=== PATIENT | female | born 1955 | race Caucasian/White ===

== ENCOUNTER → 2019-07-06 | Outpatient (CLI) | payer MEDICAID ==
[~2019-07-06] MED LIST: ALLE12TA31 PO; BREO1INH INH; FLON1SPR; MULT-90 PO; PRED50TA PO; PROAAER10 INH; SING10TA32 PO; SYNT88TA2 PO
--- NOTE | 2019-07-07 16:28 | RADONC ---
RADIATION ONCOLOGY CONSULTATION NOTE: DATE: 07/06/2019 This is a telemedicine visit. The patient was informed of the risks including security breech, technological failure, inability to perform a comprehensive physical exam which could delay or prevent an accurate diagnosis, and potential complications from treatment decisions rendered over a telemedicine platform. The patient understands and consented to the use of telehealth services phone only. CHART NUMBER: [id number] DIAGNOSIS: Right breast cancer. STAGE 0, TIS, N0 M0, poorly differentiated, grade 3, ER negative, KS negative, HER2/lisa negative. ECOG PERFORMANCE STATUS: 0 Ms. 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 HISTORY OF PRESENT ILLNESS: The patient was in the usual state of health and had been diligent with screening mammography. The mammogram done on 12/02/2017 showed no evidence of malignancy. By August 2018, however, she noted a black spot on her right nipple. She subsequently developed black nipple discharge. In September 2018 she developed some breast pain which continued to worsen. On 09/10/2018 she presented at Urgent Care with blood and pus coming out of her breast. A culture was done and she was found to have MRSA. This was treated and an ultrasound was done showing a 2.7 x 0.7 cm fluid collection underneath the right nipple consistent with a dilated duct. There was no ultrasonically detected mass within the duct. There was noted to be however. a 1.9 cm x 0.9 cm tubular fluid collection underneath the right nipple consistent with a fluid-filled dilated duct. She was placed on IV vancomycin as well as Septra DS and cephalexin. Bilateral mammography was done on 10/28/2018 as well as ultrasound and showed some scattered benign-appearing calcifications and no definitive evidence of malignancy, although there was some irregular asymmetry and increased density in the right outer breast near the palpable abnormality. On 12/01/2018, the patient underwent lumpectomy. Pathology revealed a high-grade papillary and micropapillary ductal carcinoma in situ noted to be in conjunction with associated calcifications measuring 4.0 mm. There was adjacent fibrous tissue. The tumor was estrogen receptor negative and progesterone receptor negative. On 12/15/2018 the patient underwent further surgery for her right retroareolar resection lumpectomy. Pathology revealed infiltrating atypical epithelial cells which were highly suspicious for invasive ductal carcinoma measuring 3 mm. The residual ductal carcinoma in situ was intermediate grade. It was estrogen receptor negative, progesterone receptor negative and HER2/lisa negative. The specimen was fragmented and therefore margins were unclear. On 02/09/2019, the patient underwent re-excision and sentinel lymph node sampling. In the subareolar margin region, there was no evidence of residual metastatic disease. In the right breast lumpectomy section, also no evidence of residual disease. Both areas showed fat necrosis and foreign body giant cell reaction. Further margins again showed fat necrosis, but no evidence of malignancy. A total of three sentinel lymph nodes were sampled and all were negative for metastatic disease. The patient was referred for postoperative radiation therapy somewhere in [place] but reported that was far from her house and she decided to come here to live near her daughter and be treated here. PAST MEDICAL HISTORY: The patient's past medical history is positive for acute kidney injury after vancomycin in 2018. She has a history of asthma, gastroesophageal reflux disease, MRSA as noted above. She also has had peripheral neuropathy following right neck surgery in 2004. She had a basal cell carcinoma removed. She has had a cholecystectomy as well as a hysterectomy. She had neck surgery on C5 and C6. ALLERGIES: The patient is allergic to NSAIDs. SOCIAL HISTORY: The patient does not smoke cigarettes nor abuse alcohol. FAMILY HISTORY: The patient's family history is positive for a mother with breast cancer. Sister with melanoma and a niece with melanoma. REVIEW OF SYSTEMS: The patient's review of systems is noncontributory. Denies nausea, vomiting, fevers, chills, night sweats, diplopia, headaches, anxiety or depression, anorexia, weight loss, visual disturbances, chest pain, urinary or bowel difficulties, bone pain, or neurological problems. PHYSICAL EXAMINATION: Physical examination was deferred at this point as per COVID-19 precautions. This is a telephone consultation. ASSESSMENT: I had a lengthy discussion with this patient. I do believe she is a candidate for external beam radiation therapy and I have so informed her. We are now however 5 months since surgery. I discussed with the patient in detail the potential benefits as well as possible acute and chronic sequelae of external beam radiation therapy. We discussed logistics of treatment planning, simulation and subsequent fractionated daily radiation treatments. I am scheduling the patient for the next available simulation slot and radiation treatments will begin subsequently. In addition, considering this patient's unusual history, I am setting her up with a consultation for medical oncology for their opinion. At this time, I only have documentation of ductal carcinoma in situ and therefore I do not believe she would be a candidate for systemic chemotherapy. There is a question on whether or not this is invasive and she appears to be are receptor triple negative. In summary, I am setting her up for a medical oncology consultation just to rule out any type of treatment through their office for the sake of thoroughness. In addition I am setting her up for simulation here. In light of the fact that it has now been over 5 months since her surgery without any postop treatment. I am ordering an MRI of the right breast to evaluate her at this time. Thank you for allowing us participate in the care of this pleasant woman. If I could be of any further assistance please, free contact me anytime. As always warm regards, Cc: Lukasz Flowers MD, [place] Guerita Benavides [place] cc: Milli Page MD
== END ==
LOC: M ONCR 09:07
PROVIDERS: ATTEND Radiology Radiation Oncology
DX: C50.911 Malignant neoplasm of unspecified site of right female breast (principal)

== ENCOUNTER → 2019-07-19 | Outpatient (CLI) | payer OTHER ==
[~2019-07-19] MED LIST changes: +PROHANCE 279.3MG/ML 15ML VIAL As Ordered ONE
--- NOTE | 2019-07-19 23:24 | REP ---
MRI BILATERAL BREAST WITH AND WITHOUT CONTRAST: HISTORY: Right breast lumpectomy retroareolar region with residual ductal carcinoma in situ and infiltrative atypical epithelial cells highly suspicious for invasive ductal carcinoma. There are no prior studies for comparison. TECHNIQUE: Multiple sequences obtained in the axial, coronal, and sagittal planes prior to and following the intravenous administration of 14 mL ProHance. Images are evaluated in [employer] software, including dynamic post IV gadolinium axial T1 fat-sat images, subtraction images, color overlay images, CAD images, and MIP reconstruction images. Right breast is smaller than the left with retraction of the right nipple posteriorly. In the right retroareolar region, there are multiple metallic clips causing signal dropout, obscuring this region. There is mild fibroglandular tissue scattered bilaterally. There is minimal background parenchymal enhancement. There is probably a small amount of fluid at the lumpectomy site. No significant cystic change is seen bilaterally. I see no axillary adenopathy. There is no suspicious enhancing mass or morphologic abnormality bilaterally. No definite abnormal enhancement is seen in the region of the right lumpectomy site. IMPRESSION: BIRADS category 2, benign. The patient has had a prior right lumpectomy, and reportedly the pathology results were residual ductal carcinoma in situ and infiltrative atypical epithelial cells highly suspicious for invasive ductal carcinoma. Postsurgical changes are noted on the right side in the retroareolar region, as discussed in detail above. There is no suspicious enhancing mass on the MRI and no suspicious enhancing morphologic abnormality particularly in the region of the right lumpectomy. Electronically Signed by Cristian Kern MD 07/20/2019 09:19 A
== END ==
LOC: M RAD 12:35
PROVIDERS: ATTEND Radiology Radiation Oncology
DX: C50.111 Malignant neoplasm of central portion of right female breast (principal)
CPT/HCPCS: A9576; C8908

== ENCOUNTER 2019-08-06 10:27 | Outpatient (RCR) | payer OTHER ==
--- NOTE | 2019-07-26 07:36 | RADONC ---
RADIATION ONCOLOGY SIMULATION NOTE DATE: 07/21/2019 CHART #: [id number] Ms. Bain was taken to the CT scan for CT simulation of her right breast field. CT was accomplished without difficulty or discomfort. Radiation treatment planning is underway and radiation treatments will begin subsequently. An immobilization device was created and will be used throughout the course of treatment. It was created without difficulty or discomfort. I was physically present throughout the course of CT simulation.
[~2019-08-06 10:27] MED LIST changes: -PROHANCE 279.3MG/ML 15ML VIAL As Ordered ONE
== END 2019-08-08 ==
LOC: M ONCR 10:27
PROVIDERS: ATTEND Radiology Radiation Oncology
DX: C50.111 Malignant neoplasm of central portion of right female breast (principal)

== ENCOUNTER 2019-08-25 10:26 | Outpatient (RCR) | payer OTHER ==
--- NOTE | 2019-08-10 16:56 | RADONC ---
RADIATION ONCOLOGY PROGRESS NOTE DATE: 08/03/2019 CHART NUMBER: [id number] PROGRESS NOTE: Ms. Bain is presently at a dose of 1068 cGy to her right breast and is tolerating treatments quite well at this point with no complaints related to radiation therapy. She is having no breast or bone pain. REVIEW OF SYSTEMS: The patient's review of systems is noncontributory. Denies nausea, vomiting, fevers, chills, night sweats, diplopia, headaches, anxiety or depression, anorexia, weight loss, visual disturbances, chest pain, urinary or bowel difficulties, bone pain, or neurological problems. PHYSICAL EXAMINATION: The patient's skin is in good condition with no evidence of moist or dry desquamation. The remainder of her physical exam remains unchanged. Ms. Bain is tolerating treatments quite well and radiation will continue as scheduled.
--- NOTE | 2019-08-15 08:22 | RADONC ---
RADIATION ONCOLOGY PROGRESS NOTE DATE: 08/09/2019 CHART NUMBER: [id number] PROGRESS NOTE: Ms. Bain is presently at a dose of 2136 cGy to her right breast and is tolerating treatments quite well at this point with no complaints related to her radiation therapy. She is having no breast or bone pain. REVIEW OF SYSTEMS: The patient's review of systems is noncontributory. Denies nausea, vomiting, fevers, chills, night sweats, diplopia, headaches, anxiety or depression, anorexia, weight loss, visual disturbances, chest pain, urinary or bowel difficulties, bone pain, or neurological problems. PHYSICAL EXAMINATION: The patient's skin is in good condition with no evidence of moist or dry desquamation. The remainder of physical exam remains unchanged. Ms. Bain is tolerating treatments quite well and radiation will continue as scheduled.
--- NOTE | 2019-08-17 08:55 | RADONC ---
RADIATION ONCOLOGY SIMULATION NOTE DATE: 08/11/2019 CHART #: [id number] Ms. Bain was taken to the linear accelerator today for clinical setup of her right breast electron beam boost field. Setup was accomplished without difficulty or discomfort. Radiation treatment planning is underway and radiation treatments will begin subsequently. An immobilization device was created without difficulty or discomfort. It will be used throughout the course of treatment. I was physically present throughout the course of clinical setup simulation.
--- NOTE | 2019-08-19 23:34 | RADONC ---
RADIATION ONCOLOGY PROGRESS NOTE DATE: 08/16/2019 CHART NUMBER: [id number] Ms. Bain is presently at a dose of 3471 cGy to her right breast and is tolerating treatments quite well at this point with no significant difficulties related to her radiation therapy other than some itchiness of the skin. The patient's review of systems is positive for itchiness of skin but is otherwise noncontributory. She denies nausea, vomiting, fevers, chills, night sweats, diplopia, headaches, anxiety or depression, anorexia, weight loss, visual disturbances, chest pain, urinary or bowel difficulties, bone pain, or neurological problems. PHYSICAL EXAMINATION: The patient's skin shows some erythema present but no evidence of moist or dry desquamation. The remainder of her physical exam remains unchanged. Ms. Bain is tolerating treatments quite well and radiation will continue as scheduled.
--- NOTE | 2019-08-25 10:21 | RADONC ---
RADIATION ONCOLOGY PROGRESS NOTE: DATE: 08/23/2019 CHART NUMBER: [id number] Ms. Bain is presently at a dose of 4545 cGy to her right breast primary site and is tolerating treatments quite well at this point with no significant complaints related to her radiation therapy. She is having no significant pain. REVIEW OF SYSTEMS: The patient's review of systems is noncontributory. She denies nausea, vomiting, fevers, chills, night sweats, diplopia, headaches, anxiety or depression, anorexia, weight loss, visual disturbances, chest pain, urinary or bowel difficulties, bone pain, or neurological problems. PHYSICAL EXAMINATION: The patient's skin is in good condition with no evidence of moist or dry desquamation. The remainder of her physical exam remains unchanged. Ms. Bain is tolerating treatments quite well and radiation will continue as scheduled.
--- NOTE | 2019-08-27 13:59 | RADONC ---
RADIATION ONCOLOGY TREATMENT SUMMARY DATE: 08/25/2019 CHART NUMBER: [id number] DIAGNOSIS: Right breast cancer. STAGE: 0, [id number], poorly differentiated, grade 3, ER negative, WI negative, HER2/lisa negative. ECOG PERFORMANCE STATUS: 0 TREATMENT SUMMARY: Ms. 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 We treated the patient to her right breast for a total dose of 4005 cGy delivered in 15 fractions of 260 cGy each over 21 elapsed days from 07/28/2019 through 08/18/2019. The patient's right breast was treated on a linear accelerator utilizing a 6 MV photon beam via 3-D conformal technique with medial and lateral tangential herrera. Following completion of 4005 cGy to the entire right breast the primary site was boosted for an additional 900 cGy delivered in 5 fractions of 180 cGy each over six elapsed days from 08/19/2019 through 08/25/2019. The primary site boost was treated on a linear accelerator utilizing a 9 MeV electron beam prescribed to the 90% isodose line via non phos technique. This brought the primary site to a total dose of 4905 cGy delivered in 20 fractions over 27 elapsed days from 07/28/2019 through 08/25/2019. Ms. Bain tolerated her treatments quite well and was able complete therapy as prescribed without interruption. I have scheduled the patient to see me again in 1 month for further followup. She will also continue to be followed by her other physicians as well. Copy to Lukasz Flowers MD in [place]. cc: MD Milli Logan MD
== END 2019-09-07 ==
LOC: M ONCR 10:26
PROVIDERS: ATTEND Radiology Radiation Oncology
DX: C50.111 Malignant neoplasm of central portion of right female breast (principal)

== ENCOUNTER → 2019-09-29 | Outpatient (CLI) | payer OTHER ==
[~2019-09-29] MED LIST changes: +ACET1TAB55 PO; +ADV250INH INH; +TAMO20TA8 PO
== END ==
LOC: M ONCR 10:25
PROVIDERS: ATTEND Radiology Radiation Oncology
DX: C50.111 Malignant neoplasm of central portion of right female breast (principal)

== ENCOUNTER → 2019-12-29 | Outpatient (CLI) | payer OTHER ==
--- NOTE | 2019-12-29 11:57 | RADONC ---
Radiation Oncology Hx/FUP Radiation Oncology Hx/FUP Date of Service: Dec 29, 2019 Pt Identifier Elif Bain is a 64 year old female seen for a followup visit today at the department of radiation oncology for a history of right breast DCIS ER/MA/HER2- Grade 3 s/p lumpectomy 12/01/18 and re-excision 12/15/18, the latter specimen had inconclusive evidence of an IDC. She completed adjuvant RT 40 Gy in 15 fractions WBI followed by 9 Gy in 6 fractions to the tumor bed on 08/25/19. Diagnosis/Treatment History Oncologic History As above Interval History Feels well. Currently not on endocrine or other systemic therapy. Sees medical oncology soon. Has mammographic follow up scheduled for later this year. She has no concerns post RT, noted the right breast is slightly asymmetric with the left breast sitting higher. She is curious if this is normal, not concerned about cosmesis. Current Therapy Surveillance Stage pTisN0(sn)M0 ER/MA/HER2- Grade 3 Social History: Non-smoker Non-drinker Allergies / Meds Allergies: Coded Allergies: NSAIDS (Non-Steroidal Anti-Inflamma (Verified Allergy, Severe, anaphylaxis, 07/08/19) soy (Verified Allergy, Severe, anaphylaxis, 07/08/19) Home Meds Active Scripts Fluticasone/Vilanterol (Breo Ellipta 100-25 Mcg INH) 1 Each Blst.w.dev, 1 PUFF INH DAILY for 30 Days, #1 INHALER 1 puff daily Prov:BRENDA SMALL MD 07/08/19 Reported Medications Multivitamin (Multivitamin) 1 Each Tablet, 1 EACH PO DAILY, TAB 07/08/19 Prednisone (Prednisone) 50 Mg Tablet, 1 TAB PO DAILY for 5 Days, #5 TAB 07/08/19 Fluticasone Propionate (Flonase Allergy Relief) 9.9 Ml [place].susp, 50 MCG NA DAILY, SPR 07/06/19 Fexofenadine/Pseudoephedrine (Jade-D 12 Hour Tablet) 1 Each Tab.er.12h, 1 TAB PO DAILY 07/06/19 Albuterol Sulfate (Proair Hfa) 8.5 Gm Hfa.aer.ad, 2 PUFF INH Q4-6HP PRN for wheezing for 21 Days, #1 INHALER 07/06/19 Levothyroxine Sodium (Synthroid) 88 Mcg Tablet, 88 MCG PO DAILY, TAB 07/06/19 Montelukast Sodium (Singulair) 10 Mg Tablet, 10 MG PO DAILY, TAB 07/06/19 Review of Systems Review of Systems Constitutional: Denies: ROS Unabtainable, Chills, Fever, Malaise, Night Sweats, Weakness, Fatigue, Weight Loss, Lethargy, Normal appetite, Other symptoms Eyes: Denies: Pain, Vision change, Conjunctivae inflammation, Eyelid inflammation, Redness, Other HEENT: Denies: Head Aches, Ear Pain, Dysphagia, Sinus Congestion, Post Nasal Drip, Sore Throat, Epistaxis, Other Symptoms Skin: Denies: Rash, Lesions, Jaundice, Bruising, Other Breast: Denies: New Breast Lumps / Masses, Nipple Retraction, Nipple Discharge, Breast Skin Changes, Breast Pain or Tenderness, Other Breast Complaints Pulmonary: Denies: Dyspnea, Cough, Pleuritic Chest Pain, Other Symptoms Cardiovascular: Denies: Chest Pain, Palpitations, Orthopnea, Paroxysmal Noc. Dyspnea, Edema, Lt Headedness, Other Symptoms Gastrointestinal: Denies: Nausea, Vomiting, Abdominal Pain, Diarrhea, Constipation, Melena, Hematochezia, Other Symptoms Genitourinary: Denies: Dysuria, Frequency, Incontinence, Hematuria, Retention, Other Symptoms Hematologic: Denies: Bruising, Bleeding Excessively, Petecchia, Purpura, Enlarged Lymph Nodes, Other Hematologic Endocrine: Denies: Polydipsia, Polyphagia, Polyuria, Heat Intolerance, Cold Intolerance, Other Endocrine Sx Musculoskeletal: Denies: Neck pain, Shoulder pain, Arm pain, Back pain, Hand pain, Leg pain, Foot pain, Joint pain, Muscle pain, Spasms, Gout, Joint sweling, Muscle stiffness, Midthoracic pain, Other Neurological: Denies: Weakness, Numbness, Incoordination, Change in Speech, Confusion, Seizures, Other Symptoms Psych: Denies: Mood Normal, Anxiety, Depression, Memory Issues, Thoughts of Self Harm, Anger, Thoughts of harming Other, Other Psych Physical Examination Vital Signs Wt 162 lbs T 98 P 76 RR 16 BP 152/83 O2 98% Pain 0 Fatigue 0 General Exam: Positive: Alert, Cooperative, No Acute Distress Eye Exam: Positive: PERRLA, EOMI ENT EXAM: Positive: Atraumatic, Pharynx Normal Neck Exam: Positive: Supple; Negative: Lymphadenopathy Chest Exam: Positive: Clear to auscultation, Normal air movement Heart Exam: Positive: Rate Normal, Regular Rhythm Breast Exam: Negative: Symmetric Bilaterally (Right breast ptosis > left. ), Lumps or Masses, Nipple Retraction, Nipple Discharge, Skin Changes, Other Breast Findings (Well healed right periareolar incision. Palpable seroma on right, no masses in breast or axillae BL) Abdomen Exam: Positive: Soft; Negative: Tenderness Extremity Exam: Negative: Edema Skin Exam: Positive: Nl turgor and temperature; Negative: Rash Neuro Exam: Positive: Normal Gait, Cranial Nerves 3-12 NL Psych Exam: Positive: Mental status NL, Mood NL, Anxiety Diagnostic and Laboratory Diagnostic Review Radiologic images, relevant labs and pathology reports were personally reviewed and discussed with Ms. Bain. Assessment and Plan Impression Assessment Ms. Bain is a 64 year old female with a history of right breast DCIS ER/MA/HER2- Grade 3 s/p lumpectomy 12/01/18 and re-excision 12/15/18, the latter specimen had inconclusive evidence of an IDC. She completed adjuvant RT 40 Gy in 15 fractions WBI followed by 9 Gy in 6 fractions to the tumor bed on 08/25/19. She is doing well, there is CHAPIN on exam today. The mild asymmetry of her breasts appears to be natural and not related to post-RT fibrosis as there are no palpable abnormalities to suggest it. She has appropriate medical oncology and mammographic follow up scheduled. She has no cosmetic or post radiation concerns. I will see her again in 1 year and continue annual follow up. Performance Status ECOG 0 Plan Follow up in 1 year Ms. Bain was encouraged to call with questions or concerns in the interim period. JAMIL FRANCIS MD Dec 29, 2019 11:57
== END ==
LOC: M ONCR 10:27
PROVIDERS: ATTEND General Practice
DX: C50.111 Malignant neoplasm of central portion of right female breast (principal)

== ENCOUNTER 2020-01-14 23:36 | Inpatient (IN) | payer OTHER ==
[~2020-01-14] VITALS: Ht 162.6 cm; Wt 73.8 kg
[~2020-01-14 23:36] MED LIST changes: -ACET1TAB55 PO
[2020-01-15 01:35] VITALS: BP 170/90
[2020-01-15] MEDS ORDERED: NS 1,000 ML IV SCH (02:15)
[2020-01-15] MEDS ORDERED: MAALOX 30 ML SUSP *UDC PO PRN (02:15)
[2020-01-15] MEDS ORDERED: ACETAMINOPHEN TAB 650MG DOSE (2X325MG) PO PRN (02:15)
[2020-01-15] MEDS ORDERED: MOM 30ML SUSPENSION UDC PO PRN (02:15)
[2020-01-15] MEDS ORDERED: MORPHINE 2 MG/ML 1ML VIAL (J2270) IV PRN (02:15)
[2020-01-15] MEDS ORDERED: PERCOCET 5MG/325MG TAB PO PRN (02:15)
[2020-01-15 03:44] LABS: HEMATOCRIT 40.8 % (36.0-47.0); MEAN CORPUSCULAR HGB CONC 31.9 g/dl (32.0-36.5); MEAN CORPUSCULAR VOLUME 87.9 fl (80.0-96.0); PLATELET COUNT, AUTOMATED 200 10^3/uL (150-450); RED BLOOD COUNT 4.64 10^6/uL (4.00-5.40); WHITE BLOOD COUNT 8.5 10^3/uL (4.0-10.0)
[2020-01-15 03:53] VITALS: BP 170/90
[2020-01-15 04:00] VITALS: BP 134/66
--- NOTE | 2020-01-15 04:12 | HPEPDOC ---
[facility] Medical History & Physical Date of Admission Jan 15, 2020 Date of Service: Jan 15, 2020 Attending Physician: JACQUELYN LEYVA MD History and Physical CHIEF COMPLAINT: Flank pain HISTORY OF PRESENT ILLNESS: Patient is a 64-year-old female who presented to [facility] emergency department with right-sided flank pain. Patient says that she is having some mild back and right flank pain for the past 2 days. All of a sudden earlier in the day on 01/14/2020 patient had increasing flank pain with hematuria. Patient reported the emergency department at [facility]. In the hospital emergency department, a CT of the abdomen and pelvis showed a 5 mm obstructing stone in the right uteropelvic junction. The decision was made to transfer the patient to [facility]. Patient says that she is still having some flank pain however, she is not an unbearable pain at this time. Patient reports that she still does have some hematuria but does not have any other complaints. PAST MEDICAL HISTORY: 1. History of kidney stones. 2. Hypothyroidism. 3. Breast cancer. 4. Asthma PAST SURGICAL HISTORY: 1. Multiple breast surgeries. 2. Cervical spine surgery. 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 Patient never used tobacco, rare rarely drinks alcohol and does not use illicit drugs. FAMILY HISTORY: Patient's half sister has Parkinson's disease. Patient's mother has breast cancer ALLERGIES: Please see below. REVIEW OF SYSTEMS: General: Patient denies fevers HEENT: Patient denies headaches Cardiovascular: Patient denies chest pain Respiratory: Patient denies shortness of breath, cough GI: Patient reported some nausea and vomiting but denies abdominal pain and diarrhea : Patient reports blood in her urine but denies any pain with urination. Extremities: Patient denies swelling or pain in extremities Neurological: Patient denies numbness or tingling in legs Skin: Patient denies any new rashes or lesions. Hematologic: Patient denies any easy bruising. Lymphatic: Patient denies any lumps lumps or bumps in neck, axilla, or groin HOME MEDICATIONS: Please see below. PHYSICAL EXAMINATION: VITAL SIGNS: See below General: Alert and oriented female patient who was laying on the hospital bed and I walked into the room. Patient does not appear to be any acute distress. HEENT: Normocephalic, atraumatic, moist mucous membranes. Neck: No lymphadenopathy or thyromegaly Cardiac: Regular rate and rhythm, no murmurs, normal S1, normal S2 Pulm: Clear to auscultation bilaterally. No wheezes, rhonchi, rales Abd: Mild abdominal pain in the right lower quadrant. No rebound tenderness. No distention. Normoactive bowel sounds Ext: No edema bilateral lower extremities Skin: No evidence of rash. LABORATORY DATA: See below. IMAGING: A CT of the abdomen and pelvis was performed at [facility] and was reported to show moderate right hydronephrosis related to a 5 mm proximal right ureteral calculus MICROBIOLOGY: Please see below. ASSESSMENT: And is a 64-year-old female presented to the emergency room at [facility] for increased flank pain with hematuria and was diagnosed with nephrolithiasis. . PLAN: 1. Right ureteropelvic junction nephrolithiasis. Patient has been placed on IV fluids and has been given pain control. Urology has been consult did and will see the patient in the morning. Patient is currently nothing by mouth as the patient may be going to surgery in the morning. We will continue to monitor the patient. 2. Hypothyroidism. We will continue patient's medications. 3. History of breast cancer. We'll continue the patient's home tamoxifen. Patient has completed radiation therapy. 4. DVT prophylaxis: Teds and sequentials patient may be on to the operating room in the morning. 5. CODE STATUS: At this time is full code however, the patient did mention she is thinking about getting a DO NOT RESUSCITATE order. I did give her a MOLST form to review and told the patient if she wishes to review it to let the nurse know and we will go through with her. Vital Signs Vital Signs Date Time Temp Pulse Resp B/P (MAP) Pulse Ox O2 Delivery O2 Flow Rate FiO2 01/15/20 01:35 97.2 92 19 170/90 (116) 96 Room Air Laboratory Data Labs 24H Laboratory Tests 2 01/15/20 03:38: Nucleated Red Blood Cells % (auto) 0.0 CBC/BMP Laboratory Tests 01/15/20 03:38 Home Medications Scheduled Fluticasone Propionate (Flonase Allergy Relief) 9.9 Ml [place].susp, 50 MCG NA DAILY Levothyroxine Sodium (Synthroid) 88 Mcg Tablet, 88 MCG PO QAM Montelukast Sodium (Singulair) 10 Mg Tablet, 10 MG PO DAILY Multivitamin (Multivitamin) 1 Each Tablet, 1 EACH PO DAILY Salmeterol/Fluticasone (Advair 250-50 Diskus) 1 Each Blst.w.dev, 1 PUFF INH BID Tamoxifen Citrate (Tamoxifen Citrate) 20 Mg Tablet, 20 MG PO DAILY Scheduled PRN Albuterol Sulfate (Proair Hfa) 8.5 Gm Hfa.aer.ad, 2 PUFF INH Q4-6HP PRN for wheezing Fexofenadine/Pseudoephedrine (Jade-D 12 Hour Tablet) 1 Each Tab.er.12h, 1 TAB PO DAILY PRN for CONGESTION Allergies Coded Allergies: NSAIDS (Non-Steroidal Anti-Inflamma (Verified Allergy, Severe, anaphylaxis, 07/08/19) soy (Verified Allergy, Severe, anaphylaxis, 07/08/19) A-FIB/CHADSVASC A-FIB History Current/History of A-Fib/PAF?: No GME ATTESTATION GME ATTESTATION My faculty preceptor for this patient encounter was physically present during the encounter and was fully available. All aspects of the patient interview, examination, medical decision making process, and medical care plan development were reviewed and approved by the faculty preceptor. The faculty preceptor is aware and concurs with the plan as stated in the body of this note and will attest to such by his/her cosignature. KANNAN MITTAL DO Jan 15, 2020 04:12
[2020-01-15] MEDS ORDERED: ALBUTEROL 90 MCG/ACT 8GM HFA INHALER INH PRN (04:15)
[2020-01-15 04:18] LABS: BLOOD UREA NITROGEN 15 MG/DL (7-18); CALCIUM LEVEL 8.6 MG/DL (8.8-10.2); CARBON DIOXIDE LEVEL 29 MEQ/L (21-32); CHLORIDE LEVEL 109 MEQ/L (98-107); CREATININE FOR GFR 0.98 MG/DL (0.55-1.30); GLOMERULAR FILTRATION RATE > 60.0 (>45); GLUCOSE, FASTING 112 MG/DL (70-100); MAGNESIUM LEVEL 2.3 MG/DL (1.8-2.4); POTASSIUM SERUM 3.8 MEQ/L (3.5-5.1); SODIUM LEVEL 142 MEQ/L (136-145)
[2020-01-15] MEDS ORDERED: LEVOTHYROXINE 88MCG TABLET (0.088 MG) PO SCH (06:00)
[2020-01-15] MEDS ORDERED: ADVAIR HFA 115/21MCG INHALER INH SCH (08:00)
[2020-01-15 08:33] VITALS: BP 146/74
[2020-01-15] MEDS ORDERED: FLUTICASONE PROP 0.05% NASAL SPRAY 16 GM (FLONASE) SCH (09:00)
[2020-01-15] MEDS ORDERED: MONTELUKAST 10 MG TAB PO SCH (09:00)
[2020-01-15] MEDS ORDERED: TAMOXIFEN CITRATE 10 MG TAB PO SCH (09:00)
[2020-01-15 12:07] VITALS: BP 145/72
--- NOTE | 2020-01-15 12:37 | REP ---
INDICATION: Righr ureteral calculus. Overlying the renal COMPARISON: None. TECHNIQUE: AP supine abdomen FINDINGS: The gas pattern is nonspecific. There is sclerotic bone line overlying the inferior aspect of the right iliac bone above the acetabulum. Multiple pelvic phleboliths are seen bilaterally. There are multiple calcifications noted over the right renal fossa. The larger is 7.1 mm a smaller 4.6. I cannot confidently identify a right ureteral stone on this study but I have placed an aero about a subtle density lateral to the L3 transverse process on the right. Stool and gas overlie the expected proximal course of the ureter limiting the evaluation. No left renal fossa stone. No left ureteral calculus. Levorotatory curve of the lumbar spine and lower lumbar facet and degenerative disc changes noted Right upper quadrant surgical clips from prior cholecystectomy. IMPRESSION: : 1. There are least 2 stones overlying the right renal fossa the larger 7 mm. I do not see definite stone overlying the expected course of the right ureter but there is 1 questionable area that I have placed an arrow on just lateral to the L3 transverse process. This could be stool content in all likelihood. 2. Multiple pelvic phleboliths. No definite pelvic ureteral stone seen. No left renal fossa calcification. <Electronically signed by Lior Ramos > 01/15/20 [id number]
--- NOTE | 2020-01-15 13:11 | SMCUROLCON ---
Urology Consultation General Date of Consultation 01/15/20 Reason For Consultation This patient is seen for Obstruction Of Upj Due To Stone. History of Present Illness The patient is a 64-year-old female with a past medical history for kidney stones. She states that for about 2 weeks now she has been noticing some vague left back pain. This reached a peak last night where it became very severe and she pr esented to the emergency room and [place] for evaluation. A CT scan there showed a 5 mm proximal right ureteral calculus. Because of her level of pain she was transferred to [facility]. She states that on the ride down to [facility] the pain began to ease and disappeared completely about 3:00 this morning. She has not passed a stone that she is aware of. She does have a past history of stones dating back years ago when she was . She has not had any other stones since then and no stones passed spontaneously. She did have some gross hematuria despite before and while at [facility] but the urine has now cleared. Past Medical History Medical History Asthma Breast cancer Previous history of renal calculi Hypothyroidism Previous cervical spine fracture Surgical Hstory Hysterectomy Mastectomy Cholecystectomy Social History * Smoker: non-smoker Alcohol: rarely Drugs: denies Medications Current Medications Current Medications Medications (Trade) Dose Ordered Sig/Moe Route PRN Reason Start Time Stop Time Status Last Admin Dose Admin Acetaminophen (Tylenol Tab) 650 mg Q4H PRN PO PAIN OR FEVER 01/15/20 02:15 Al Hydrox/Mg Hydrox/Simethicone (Mylanta) 30 ml DAILY PRN PO DYSPEPSIA 01/15/20 02:15 Albuterol Sulfate (Proventil, Ventolin Hfa) 2 puff Q4HP PRN INH wheezing 01/15/20 04:15 Fluticasone Propionate (Flonase 0.05% Nasal [place]) 1 spray DAILY NA 01/15/20 09:00 Home Med (Med Rec Complete!) ASDIRECTED XX 01/15/20 03:30 01/15/20 03:27 DC Levothyroxine Sodium (Synthroid) 88 mcg DAILY@0600 PO 01/15/20 06:00 01/15/20 05:29 Magnesium Hydroxide (Milk Of Magnesia) 30 ml DAILY PRN PO CONSTIPATION 01/15/20 02:15 Montelukast Sodium (Singulair) 10 mg DAILY PO 01/15/20 09:00 01/15/20 09:11 Morphine Sulfate (Morphine Sulfate Inj) 2 mg Q2H PRN IV SEVERE PAIN (PS 8-10) 01/15/20 02:15 Oxycodone/ Acetaminophen (Percocet 5mg/ 325mg Tablet) 1 tab Q4HP PRN PO MODERATE PAIN (PS 5-7) 01/15/20 02:15 Salmeterol Xinafoate/ Fluticasone (Advair Hfa 115/ 21) 2 puff RBID INH 01/15/20 08:00 01/15/20 07:35 Sodium Chloride 1,000 ml @ 120 mls/hr Q8H20M IV 01/15/20 02:15 01/15/20 03:41 Tamoxifen Citrate (Nolvadex) 20 mg DAILY PO 01/15/20 09:00 01/15/20 09:11 Allergies Allergies: Coded Allergies: NSAIDS (Non-Steroidal Anti-Inflamma (Verified Allergy, Severe, anaphylaxis, 07/08/19) soy (Verified Allergy, Severe, anaphylaxis, 07/08/19) Review of Systems General: Reports: Normal Appetite; Denies: Fatigue, Malaise Constitutional: Denies: Fever, Chills, Sweats, Weakness, Malaise Eyes: Denies: Pain, Vision change ENT: Denies: Head Aches, Sore Throat, Epistaxis Skin: Denies: Rash, Lesions, Breakdown, Nail Changes Pulmonary: Denies: Dyspnea, Cough Cardiovascular: Denies Chest Pain, Denies Palpitations Gastrointestinal: Denies: Nausea, Vomiting, Abdominal Pain Genitourinary: Denies: Dysuria, Frequency, Incontinence, Hematuria Hematologic: Denies: Bruising, Bleeding Excessively Endocrine: Denies: Polydipsia, Polyphagia, Polyuria Musculoskeletal: Denies: Neck Pain, Back Pain Neurological: Denies: Weakness, Numbness, Incoordination, Change in Speech Psych: Reports: Mood Normal; Denies: Anxiety, Depression Physical Examination General Exam: Alert, No Acute Distress EYE EXAM: PERRLA, Conjunctiva & lids normal, EOMI; No: Sclera icteric ENT EXAM: Atraumatic, Mucous membr. moist/pink, Pharynx Normal Neck Exam: Supple; No: JVD, thyromegaly Chest Exam: Clear to auscultation, Normal air movement Heart Exam: Rate Normal, Regular Rhythm, Normal S1, Normal S2; No: Murmurs, Rubs Abdomen Exam: Normal Bowel Sounds, Soft; No: Tenderness, Hepatospenomegaly Female Exam Back is without CVA tenderness Skin Exam: Nl turgor and temperature; No: Rash, Breakdown Neuro Exam: Normal Gait, Normal Speech, Cranial Nerves 3-12 NL, Reflexes 2+ Psych Exam: Mental status NL, Mood NL, Oriented x 3 Vital Signs/I&O Vital Signs Date Time Temp Pulse Resp B/P (MAP) Pulse Ox O2 Delivery O2 Flow Rate FiO2 01/15/20 08:33 98.2 82 18 146/74 (98) 98 Room Air I&O- Last 24 Hours up to 6 AM 01/15/20 06:00 Intake Total 0 ml Output Total 950 ml Balance -950 ml Laboratory Data 24H Labs Laboratory Tests 2 01/15/20 03:38: Nucleated Red Blood Cells % (auto) 0.0, Anion Gap 4L, Glomerular Filtration Rate > 60.0, Calcium Level 8.6L, Magnesium Level 2.3 CBC/BMP Laboratory Tests 01/15/20 03:38 Assessment History of 5 mm right proximal ureteral calculus. Plan Patient will have a KUB to determine the location of the stone. At this point the patient is quite comfortable. I discussed the treatment options including watchful waiting with hopefully spontaneous stone passage, ESWL, ureteroscopic laser lithotripsy, stent insertion with definitive treatment at a later date. At this point, the patient wants to try to pass the stone on her own especially if her comfort level is tolerable as it is right now. A KUB has been ordered and depending upon the size and location of the stone a determination will be made at that time. NOTE: The KUB shows that the ureteral calculus has fallen back into the renal lower pole. She can therefore be discharged and followup as an outpatient for ESWL treatment. I have discussed this with the patient and she is in agreement. JUAN LUIS ESPINOZA MD Jan 15, 2020 11:47
[2020-01-15] MEDS ORDERED: ACET1TAB55 PO (13:23)
--- NOTE | 2020-01-15 17:48 | DS.PDOC ---
Discharge Summary General Date of Admission Jan 15, 2020 at 01:30 Date of Discharge 01/15/20 Discharge Summary PROCEDURES PERFORMED DURING STAY: [None]. ADMITTING DIAGNOSES: nephrolithiasis Hypothyroidism History of breast cancer DISCHARGE DIAGNOSES: nephrolithiasis Hypothyroidism History of breast cancer COMPLICATIONS/CHIEF COMPLAINT: Obstruction Of Upj Due To Stone. HISTORY OF PRESENT ILLNESS: The patient is a 64-year-old female with a past medical history for kidney stones. She states that for about 2 weeks now she has been noticing some vague left back pain. This reached a peak last night where it became very severe and she presented to the emergency room and [place] for evaluation. A CT scan there showed a 5 mm proximal right ureteral calculus. Because of her level of pain she was transferred to [facility]. She states that on the ride down to [facility] the pain began to ease and disappeared completely about 3:00 this morning. She has not passed a stone that she is aware of. She does have a past history of stones dating back years ago when she was . She has not had any other stones since then and no stones passed spontaneously. She did have some gross hematuria despite before and while at [facility] but the urine has now cleared. HOSPITAL COURSE: The KUB shows that the ureteral calculus has fallen back into the renal lower pole. She can therefore be discharged and followup as an outpatient for ESWL treatment. I have discussed this with the patient and she is in agreement. DISCHARGE MEDICATIONS: Please see below. ALLERGIES: Please see below. PHYSICAL EXAMINATION ON DISCHARGE: VITAL SIGNS: Please see below. General Exam: Alert, No Acute Distress EYE EXAM: PERRLA, Conjunctiva & lids normal, EOMI; No: Sclera icteric ENT EXAM: Atraumatic, Mucous membr. moist/pink, Pharynx Normal Neck Exam: Supple; No: JVD, thyromegaly Chest Exam: Clear to auscultation, Normal air movement Heart Exam: Rate Normal, Regular Rhythm, Normal S1, Normal S2; No: Murmurs, Rubs Abdomen Exam: Normal Bowel Sounds, Soft; No: Tenderness, Hepatospenomegaly Female Exam Back is without CVA tenderness Skin Exam: Nl turgor and temperature; LABORATORY DATA: Please see below. IMAGING: [facility] NAME: KAYE BLUM DATE OF : 1955 AGE: 64 SEX: F REPORT #: [id number] ROOM: [facility] TECHNOLOGIST: [place] [id number] DOCTOR: JUAN LUIS ESPINOZA MD Ordered for Date&Time: 01/15/20 1120 cc: [~ rep ct ivnm] Service Date&Time: 01/15/20 1146 This report is in Signed status. If this report is in a DRAFT status it has not yet been reviewed by the radiologist for accuracy. Thank you for having your radiology procedures performed at [facility] RADIOLOGY REPORT Date&Time printed: [~ rep prt dt last] [~ rep prt tm last] Page 2 of 2 [place] [address] RADIOLOGY REPORT This report is in Signed status. If this report is in a DRAFT status it has not yet been reviewed by the radiologist for accuracy. Thank you for having your radiology procedures performed at [facility] RADIOLOGY REPORT Date&Time printed: [~ rep prt dt last] [~ rep prt tm last] Page 1 of 1 TECHNIQUE: AP supine abdomen FINDINGS: The gas pattern is nonspecific. There is sclerotic bone line overlying the inferior aspect of the right iliac bone above the acetabulum. Multiple pelvic phleboliths are seen bilaterally. There are multiple calcifications noted over the right renal fossa. The larger is 7.1 mm a smaller 4.6. I cannot confidently identify a right ureteral stone on this study but I have placed an aero about a subtle density lateral to the L3 transverse process on the right. Stool and gas overlie the expected proximal course of the ureter limiting the evaluation. No left renal fossa stone. No left ureteral calculus. Levorotatory curve of the lumbar spine and lower lumbar facet and degenerative disc changes noted Right upper quadrant surgical clips from prior cholecystectomy. IMPRESSION: : 1. There are least 2 stones overlying the right renal fossa the larger 7 mm. I do not see definite stone overlying the expected course of the right ureter but there is 1 questionable area that I have placed an arrow on just lateral to the L3 transverse process. This could be stool content in all likelihood. 2. Multiple pelvic phleboliths. No definite pelvic ureteral stone seen. No left renal fossa calcification. <Electronically signed by Lior Ramos > 01/15/20 1234 DD: Lior Ramos MD 01/15/20 1228 DT: RADHA 01/15/20 1234 DS: RUSSELL 01/15/20 1228 01/15/20 1228 [~ rep ct labl] PROGNOSIS: Fair ACTIVITY: [As tolerated]. DIET: Regular DISPOSITION: 01 Home, Self-Care. DISCHARGE INSTRUCTIONS: Drink plenty of fluid ITEMS TO FOLLOWUP ON ON OUTPATIENT: Follow-up with urologist DISCHARGE CONDITION: [Stable]. TIME SPENT ON DISCHARGE: Greater than 20 minutes. Vital Signs/I&Os Vital Signs Date Time Temp Pulse Resp B/P (MAP) Pulse Ox O2 Delivery O2 Flow Rate FiO2 01/15/20 12:07 97.6 74 18 145/72 (96) 98 Room Air I&O- Last 24 Hours up to 6 AM 01/15/20 05:59 Intake Total 0 ml Output Total 950 ml Balance -950 ml Laboratory Data Labs 24H Laboratory Tests 2 01/15/20 03:38: Nucleated Red Blood Cells % (auto) 0.0, Anion Gap 4L, Glomerular Filtration Rate > 60.0, Calcium Level 8.6L, Magnesium Level 2.3 CBC/BMP Laboratory Tests 01/15/20 03:38 Discharge Medications Scheduled Fluticasone Propionate (Flonase Allergy Relief) 9.9 Ml [place].susp, 50 MCG NA DAILY, (Reported) Levothyroxine Sodium (Synthroid) 88 Mcg Tablet, 88 MCG PO QAM, (Reported) Montelukast Sodium (Singulair) 10 Mg Tablet, 10 MG PO DAILY, (Reported) Multivitamin (Multivitamin) 1 Each Tablet, 1 EACH PO DAILY, (Reported) Salmeterol/Fluticasone (Advair 250-50 Diskus) 1 Each Blst.w.dev, 1 PUFF INH BID, (Reported) Tamoxifen Citrate (Tamoxifen Citrate) 20 Mg Tablet, 20 MG PO DAILY Scheduled PRN Acetaminophen (Acetaminophen) 325 Mg Tablet, 650 MG PO Q4H PRN for PAIN OR FEVER Albuterol Sulfate (Proair Hfa) 8.5 Gm Hfa.aer.ad, 2 PUFF INH Q4-6HP PRN for wheezing, (Reported) Fexofenadine/Pseudoephedrine (Jade-D 12 Hour Tablet) 1 Each Tab.er.12h, 1 TAB PO DAILY PRN for CONGESTION, (Reported) Allergies Coded Allergies: NSAIDS (Non-Steroidal Anti-Inflamma (Verified Allergy, Severe, anaphylaxis, 07/08/19) soy (Verified Allergy, Severe, anaphylaxis, 07/08/19) ALEX GARRIDO DO Jan 15, 2020 17:48
[2020-01-16] MEDS ORDERED: FLUBLOK(EGG FREE)(QUAD)INFLUENZA VACC 0.5ML SYRINGE 18YRS & OLDER IM ONE (09:00)
== END 2020-01-15 14:53 | disposition home or self-care (01) | DRG 465 ==
LOC: M PCU 01-15 01:30
PROVIDERS: ADMIT Family Medicine; ATTEND Internal Medicine
DX: N20.1 Calculus of ureter (principal); E03.9 Hypothyroidism, unspecified; Z85.3 Personal history of malignant neoplasm of breast; Z79.899 Other long term (current) drug therapy; Z88.6 Allergy status to analgesic agent; J45.909 Unspecified asthma, uncomplicated; R31.9 Hematuria, unspecified

== ENCOUNTER → 2020-01-21 | Outpatient (REF) | payer OTHER ==
[~2020-01-21] MED LIST changes: +ACET1TAB55 PO; +NEURIVA
== END ==
LOC: M SMT 17:07
PROVIDERS: ATTEND Urology
DX: N20.2 Calculus of kidney with calculus of ureter (principal)

== ENCOUNTER → 2020-01-21 | Outpatient (CLI) | payer OTHER ==
--- NOTE | 2020-01-21 13:36 | REP ---
INDICATION: CALCULUS OF KIDNEY W/ CALCULUS OF URETER. COMPARISON: 01/15/2020. FINDINGS: KUB shows the intestinal gas pattern to be nonspecific. The organ silhouettes insofar as delineated are unremarkable. There is no evidence of free intraperitoneal air. The small bowel gas pattern seen on the prior examination has improved. 2 calcifications are again seen superimposed over the right nephric silhouette unchanged. There are bilateral pelvic phleboliths unchanged. IMPRESSION: Nonspecific. <Electronically signed by Peter Conteh > 01/21/20 1037
== END ==
LOC: M RAD 12:46
PROVIDERS: ATTEND Urology
DX: N20.2 Calculus of kidney with calculus of ureter (principal)

== ENCOUNTER → 2020-01-24 | Outpatient (CLI) | payer OTHER ==
[~2020-01-24] MED LIST changes: +FLOM0.4C39 PO; +OXYC1TAB23 PO
--- NOTE | 2020-01-24 23:40 | ECGEPIP ---
[facility] Test Date: 2020-01-24 Pat Name: KAYE BLUM Department: Room: - Gender: Female Recreation Establishment Manager: LAUREEN : 1955 Requested By: WILLIAM Tim Order Number: [id number] Reading MD: Tushar Vickers Measurements Intervals [place] Rate: 78 P: 59 MN: 191 QRS: -11 QRSD: 97 T: 23 QT: 377 QTc: 430 Interpretive Statements SINUS RHYTHM POSSIBLE LEFT ATRIAL ENLARGEMENT RSR' IN V1 OR V2, RIGHT VCD OR RVH NO PRIOR TRACING Electronically Signed on 01-24-2020 23:40:22 EST by Tushar Vickers
--- NOTE | 2020-01-25 02:40 | REP ---
INDICATION: ENCOUNTER FOR OTHER PREPROCEDURAL EXAM/EKG 1ST COMPARISON: None. TECHNIQUE: PA and lateral. FINDINGS: The mediastinum and cardiac silhouette are normal. Mild chronic changes at the right base are suggested and should be correlated with physical examination and auscultation to exclude acute atelectasis. No consolidation, effusion, or pneumothorax. Evidence for prior cervical fixation and right breast surgery. Skeletal structures are intact. IMPRESSION: No obvious acute cardiopulmonary process appreciated. As above. <Electronically signed by Eloy Johnson > 01/25/20 [id number]
== END ==
LOC: M EKG 09:02
PROVIDERS: ATTEND Urology
DX: Z01.818 Encounter for other preprocedural examination (principal); N20.0 Calculus of kidney

== ENCOUNTER → 2020-01-25 | Outpatient (CLI) | payer OTHER | LOC: M LABSMTC 09:49 | PROVIDERS: ATTEND Anesthesiology | DX: Z01.812 Encounter for preprocedural laboratory examination (principal); Z20.828 Contact with and (suspected) exposure to other viral communicable diseases ==

== ENCOUNTER 2020-01-27 06:47 | Day surgery (SDC) | payer OTHER ==
[~2020-01-27] VITALS: Ht 162.6 cm; Wt 73.5 kg
[~2020-01-27 06:47] MED LIST changes: -FLOM0.4C39 PO; +LIDOCAINE 1% MDV 20ML VIAL SQ PRN; +LR 1,000 ML IV ONE; -OXYC1TAB23 PO; +ceFAZolin SOD 2 GM in IV 1 EA IV ONE
--- NOTE | 2020-01-27 07:59 | REP ---
INDICATION: KIDNEY STONE COMPARISON: 01/21/2020 TECHNIQUE: Supine view of the abdomen and pelvis. FINDINGS: Evaluation for urinary tract calcifications is limited due to technique and overlying bowel gas pattern. However, the two previously noted calcifications overlying the right renal silhouette are again suggested and unchanged. Calcifications in the pelvis remain stable and likely represent phleboliths. No bowel obstruction. No organomegaly. Evidence for prior cholecystectomy. Skeletal structures stable. IMPRESSION: Limited evaluation for urinary tract calcifications. Suspected stable calcifications overlying the right renal silhouette up to 4 mm. <Electronically signed by Eloy Johnson > 01/27/20 [id number]
[2020-01-27] MEDS ORDERED: FLOM0.4C39 PO (08:58)
[2020-01-27] MEDS ORDERED: OXYC1TAB23 PO (08:58)
[2020-01-27] MEDS ORDERED: ONDANSETRON 4MG/2ML VIAL As Ordered ONE (09:10)
[2020-01-27] MEDS ORDERED: fentaNYL 100 MCG/2 ML INJECTION (J3010) As Ordered ONE (09:10)
[2020-01-27] MEDS ORDERED: GLYCOPYRROLATE INJ 0.2 MG/ML 2 ML VIAL As Ordered ONE (09:10)
[2020-01-27] MEDS ORDERED: MIDAZOLAM INJ 2MG/2ML VIAL (J2250 PER 1MG) As Ordered ONE (09:10)
[2020-01-27] MEDS ORDERED: LIDOCAINE 2% 100MG/5ML SDV (FOR ANES.) As Ordered ONE (09:10)
[2020-01-27] MEDS ORDERED: KETAMINE HCL 200 MG/20 ML VIAL As Ordered ONE (09:10)
[2020-01-27] MEDS ORDERED: propofoL 200 MG/20 ML VIAL As Ordered ONE (09:10)
--- NOTE | 2020-01-27 09:13 | ROOPDOC ---
[facility] Report Of Operation Report of Operation DATE OF PROCEDURE: 01/27/20 PREPROCEDURE DIAGNOSIS: Right kidney stones. POSTPROCEDURE DIAGNOSIS: Right kidney stones. PROCEDURE: Right extracorporeal shock wave lithotripsy. SURGEON: Dr. William Meza EMPLOYMENT LAW SPECIALIST: None. ANESTHESIA: Monitored anesthesia care (MAC). OPERATIVE INDICATIONS: This is a 64-year-old female who was found 2 right kidney stones measuring up to 5-6mm in size. she was brought to the operating room today for the above-listed procedure. DESCRIPTION OF PROCEDURE: The patient brought to the operating room, and MAC anesthesia was administered. Prophylactic antibiotics were infused. She was then placed in the supine position in preparation for a right-sided extracorporeal shock wave lithotripsy. Fluoroscopy was utilized to monitor stone position and fragmentation throughout the procedure. Shock waves were then delivered to the right-sided kidney stones ungated. There were no arrhythmias. The stones did appear to fragment well. After 2500 shocks, the procedure was concluded. The patient was then awakened from anesthesia and transported to the recovery room in stable condition. ESTIMATED BLOOD LOSS: 0 mL. COMPLICATIONS: None. SPECIMENS: None. PLAN: The patient will followup in clinic in a few weeks with imaging prior to assess for residual stone burden. WILLIAM MEZA MD Jan 27, 2020 09:13
[2020-01-27 10:00] VITALS: BP 158/80
== END 2020-01-27 10:00 | disposition home or self-care (01) ==
LOC: M SDC 06:47
PROVIDERS: ATTEND Urology
DX: N20.0 Calculus of kidney (principal); E03.9 Hypothyroidism, unspecified; J45.909 Unspecified asthma, uncomplicated; Z79.890 Hormone replacement therapy; Z79.899 Other long term (current) drug therapy; Z85.3 Personal history of malignant neoplasm of breast; Z86.14 Personal history of Methicillin resistant Staphylococcus aureus infection; Z88.6 Allergy status to analgesic agent; Z90.710 Acquired absence of both cervix and uterus; Z91.018 Allergy to other foods; Z92.21 Personal history of antineoplastic chemotherapy; Z92.3 Personal history of irradiation
CPT/HCPCS: 50590; 74018; J2250; J2405; J3010

== ENCOUNTER → 2020-02-17 | Outpatient (CLI) | payer OTHER ==
[~2020-02-17] MED LIST changes: +FLOM0.4C39 PO; -LIDOCAINE 1% MDV 20ML VIAL SQ PRN; -LR 1,000 ML IV ONE; +OXYC1TAB23 PO; -ceFAZolin SOD 2 GM in IV 1 EA IV ONE
--- NOTE | 2020-02-17 11:44 | REP ---
INDICATION: CALCULUS OF KIDNEY. COMPARISON: January 27, 2020.. TECHNIQUE: Single view KUB. FINDINGS: There are surgical clips in the right upper quadrant as before. The bowel gas pattern is normal. Levoconvex curve is again noted in the lumbar spine. There are phleboliths in the pelvis. A bone island is noted in the right iliac bone. There is a calcific density 4 mm in diameter projecting over the lower pole of the right kidney. This is noted previously. No other urinary tract calculus is appreciated. IMPRESSION: Intrarenal nephrolithiasis on the right suspected. <Electronically signed by Jonathon Quinn > 02/17/20 1621
== END ==
LOC: M RAD 09:00
PROVIDERS: ATTEND Nurse Practitioner Women's Health
DX: N20.0 Calculus of kidney (principal)

== ENCOUNTER → 2020-02-18 | Outpatient (CLI) | payer OTHER ==
--- NOTE | 2020-02-18 16:33 | DEXAMM ---
INDICATION: HX BREAST CA/ON AI THERAPY. COMPARISON: None. TECHNIQUE: Bone density was measured using dual-energy x-ray absorptionmetry (DEXA). FINDINGS: AP SPINE L1-L4 BMD 1.121 g/cm2 Young Adult T-Score -0.6 Age Matched Z-Score 0.9. LT FEMUR, TOTAL BMD 0.812 g/cm2 Young Adult T-Score -1.6 Age Matched Z-Score -0.4. LT NECK BMD 0.772 g/cm2 Young Adult T-Score -1.9 Age Matched Z-Score -0.5. RT FEMUR, TOTAL BMD 0.790 g/cm2 Young Adult T-Score -1.7 Age Matched Z-Score -0.6. RT NECK BMD 0.769 g/cm2 Young Adult T-Score -1.9 Age Matched Z-Score -0.5. IMPRESSION: There is normal bone density of the spine. There is low bone density of the left hip. There is low bone density of the right hip. FOLLOW-UP: Recommendation for the next bone density exam: 2 years. <Electronically signed by Jonathon Quinn > 02/18/20 [id number]
== END ==
LOC: M WHC 12:42
PROVIDERS: ATTEND Specialist
DX: Z12.31 Encounter for screening mammogram for malignant neoplasm of breast (principal); M85.851 Other specified disorders of bone density and structure, right thigh; M85.852 Other specified disorders of bone density and structure, left thigh

== ENCOUNTER → 2020-06-13 | Outpatient (CLI) | payer OTHER ==
--- NOTE | 2020-06-13 12:06 | REP ---
INDICATION: LT NIPPLE DISCHARGE,PRIOR RT BREAST CA; LT NIPPLE DISCHARGE,PRIOR BREAST CA. COMPARISON: 02/18/2020 as well as other prior exams. TECHNIQUE: MLO and CC views left breast performed with tomosynthesis. Left breast ultrasound performed. FINDINGS: Scattered fibroglandular tissue in left breast is stable. There is no new mass, architectural distortion or clustered microcalcifications. Left retroareolar region ultrasound performed for nipple discharge. No discrete cystic or solid nodule is seen. The Volpara volumetric breast density pattern is B. IMPRESSION: BIRADS/ACR category 0, incomplete. No new mass, architectural distortion or clustered microcalcifications by mammography. No sonographic abnormality in the left retroareolar region in this patient with history of left nipple discharge. I would recommend MRI of the breasts for further evaluation. This mammogram was interpreted with the aid of an FDA-approved computer-aided detection system. The patient states she had a clinical breast exam in June 2020. The patient letter being requested is M0. RECOMMENDATION: Recommend MRI of the breasts to further evaluate left nipple discharge. <Electronically signed by Cristian Kern > 06/13/20 [id number]
== END ==
LOC: M WHC 10:40
PROVIDERS: ATTEND Specialist
DX: R92.8 Other abnormal and inconclusive findings on diagnostic imaging of breast (principal); N64.52 Nipple discharge; Z85.3 Personal history of malignant neoplasm of breast
CPT/HCPCS: 76642; 77065; G0279

== ENCOUNTER → 2020-06-19 | Outpatient (CLI) | payer OTHER ==
[2020-06-19 11:39] LABS: BASO # 0.1 10^3/uL (0.0-0.2); BASO % 1.2 % (0.0-1.0); EOS # 0.5 10^3/uL (0.0-0.5); EOS % 8.3 % (0.0-3.0); LYMPH # 2.4 10^3/uL (1.5-5.0); LYMPH % 41.2 % (24.0-44.0); MEAN CORPUSCULAR HEMOGLOBIN 28.3 pg (27.0-33.0); MEAN CORPUSCULAR VOLUME 91.3 fl (80.0-96.0); MONO # 0.5 10^3/uL (0.0-0.8); MONO % 7.8 % (2.0-8.0); NEUTROPHILS # 2.4 10^3/uL (1.5-8.5); NEUTROPHILS % 41.2 % (36.0-66.0); PLATELET COUNT, AUTOMATED 209 10^3/uL (150-450); WHITE BLOOD COUNT 5.9 10^3/uL (4.0-10.0)
[2020-06-19 12:20] LABS: HEMOGLOBIN A1c 5.4 %
[2020-06-19 12:27] LABS: ALBUMIN 3.8 GM/DL (3.2-5.2); ALT/SGPT 17 U/L (12-78); BILIRUBIN,TOTAL 0.3 MG/DL (0.2-1.0); BLOOD UREA NITROGEN 17 MG/DL (7-18); CALCIUM LEVEL 8.9 MG/DL (8.8-10.2); CARBON DIOXIDE LEVEL 31 MEQ/L (21-32); CHLORIDE LEVEL 108 MEQ/L (98-107); CHOLESTEROL LEVEL 220 MG/DL (<200); CHOLESTEROL RISK RATIO 3.793 (<5); CREATININE FOR GFR 0.82 MG/DL (0.55-1.30); GLOMERULAR FILTRATION RATE > 60.0 (>45); GLUCOSE, FASTING 80 MG/DL (70-100); HDL CHOLESTEROL 58 MG/DL (>40); LDL CHOLESTEROL 133 MG/DL (<100); NON-HDL-C 162 MG/DL; POTASSIUM SERUM 3.5 MEQ/L (3.5-5.1); SODIUM LEVEL 144 MEQ/L (136-145); THYROID STIMULATING HORMONE 0.797 uIU/ML (0.358-3.740); TOTAL PROTEIN 6.7 GM/DL (6.4-8.2); TRIGLYCERIDES LEVEL 147 MG/DL (<150)
[2020-06-19 14:19] LABS: FOLLICLE STIMULATING HORMONE 70.6 mIU/mL
== END ==
LOC: M LAB 10:00
PROVIDERS: ATTEND Family Medicine
DX: E03.9 Hypothyroidism, unspecified (principal); E78.00 Pure hypercholesterolemia, unspecified; C44.501 Unspecified malignant neoplasm of skin of breast; R73.01 Impaired fasting glucose

== ENCOUNTER → 2020-07-07 | Outpatient (CLI) | payer OTHER ==
[~2020-07-07] MED LIST changes: +PROHANCE 279.3MG/ML 15ML VIAL As Ordered ONE
--- NOTE | 2020-07-07 16:11 | REP ---
INDICATION: BREAST CA HX, NIPPLE DISCHARGE. Left breast nipple discharge. Negative mammography and ultrasound. MRI recommended. COMPARISON: Comparison MRI study July 19, 2019. Comparison left breast mammography and sonography June 13, 2020. TECHNIQUE: Three My MRI imaging was performed with a dedicated breast coil. Axial, coronal, and sagittal T1 and T2 weighted scans were obtained with and without fat saturation in the usual fashion. The study includes dynamically acquired post gadolinium-enhanced imaging with image subtraction. Maximum intensity projection and multi planar reformation imaging is included as well. This study is interpreted with the aid of [employer], an FDA approved computer aided detection (CAD) software program, on a dedicated breast MRI workstation. The gadolinium enhancement dose is 14 mL of intravenous ProHance. FINDINGS: There is a mild amount of fibroglandular tissue bilaterally. There is post treatment contour deformity in the right breast. Right breast is smaller than the left. Magnetic field susceptibility artifact is seen in the central retroareolar region of the right breast corresponding with mammographically visible metallic markers. This is unchanged. There is no evidence of axillary lymphadenopathy, internal mammary adenopathy, or significant breast cystic change on either side. High-resolution T1 and T2 weighted pre and post-contrast images show no suspicious morphologic abnormality in either breast. Dynamically acquired sequential postcontrast images show no suspicious focus of enhancement and washout in either breast to suggest malignancy. No dilated ducts are noted. IMPRESSION: BI-RADS category 2 benign bilateral breast MRI findings. Post treatment changes again noted on the right. No abnormality noted on the left. No change from comparison study. Clinical follow-up is advised. Consider discharge cytology and possible breast surgical evaluation. <Electronically signed by Jonathon Quinn > 07/07/20 [id number]
== END ==
LOC: M RAD 12:57
PROVIDERS: ATTEND Specialist
DX: N64.52 Nipple discharge (principal); Z85.3 Personal history of malignant neoplasm of breast
CPT/HCPCS: A9576; C8908

== ENCOUNTER → 2020-07-26 | Outpatient (REF) | payer OTHER ==
[~2020-07-26] MED LIST changes: -PROHANCE 279.3MG/ML 15ML VIAL As Ordered ONE
== END ==
LOC: M SFHCWAGY 13:00
PROVIDERS: ATTEND Surgery
DX: N64.52 Nipple discharge (principal)

== ENCOUNTER → 2020-10-31 | Outpatient (CLI) | payer MEDICARE ==
[2020-10-31 12:08] LABS: BASO # 0.1 10^3/uL (0.0-0.2); BASO % 1.4 % (0.0-1.0); EOS # 0.7 10^3/uL (0.0-0.5); EOS % 13.1 % (0.0-3.0); HEMATOCRIT 43.3 % (36.0-47.0); HEMOGLOBIN 13.6 g/dl (12.0-15.5); LYMPH # 1.4 10^3/uL (1.5-5.0); LYMPH % 26.4 % (24.0-44.0); MEAN CORPUSCULAR HEMOGLOBIN 27.9 pg (27.0-33.0); MEAN CORPUSCULAR HGB CONC 31.4 g/dl (32.0-36.5); MEAN CORPUSCULAR VOLUME 88.9 fl (80.0-96.0); MONO # 0.4 10^3/uL (0.0-0.8); MONO % 7.1 % (2.0-8.0); NEUTROPHILS # 2.7 10^3/uL (1.5-8.5); NEUTROPHILS % 51.8 % (36.0-66.0); PLATELET COUNT, AUTOMATED 239 10^3/uL (150-450); RED BLOOD COUNT 4.87 10^6/uL (4.00-5.40); WHITE BLOOD COUNT 5.2 10^3/uL (4.0-10.0)
[2020-10-31 15:32] LABS: HEMOGLOBIN A1c 5.3 %
[2020-10-31 23:05] LABS: ALBUMIN 3.5 GM/DL (3.2-5.2); ALT/SGPT 21 U/L (12-78); BILIRUBIN,TOTAL 0.4 MG/DL (0.2-1.0); BLOOD UREA NITROGEN 14 MG/DL (7-18); CALCIUM LEVEL 8.6 MG/DL (8.8-10.2); CARBON DIOXIDE LEVEL 22 MEQ/L (21-32); CHLORIDE LEVEL 108 MEQ/L (98-107); CHOLESTEROL LEVEL 195 MG/DL (<200); CREATININE FOR GFR 0.78 MG/DL (0.55-1.30); FREE T4 1.27 NG/DL (0.76-1.46); GLOMERULAR FILTRATION RATE > 60.0 (>45); GLUCOSE, FASTING 85 MG/DL (70-100); HDL CHOLESTEROL 52 MG/DL (>40); LDL CHOLESTEROL 103 MG/DL (<100); NON-HDL-C 143 MG/DL; POTASSIUM SERUM 4.3 MEQ/L (3.5-5.1); SODIUM LEVEL 138 MEQ/L (136-145); THYROID STIMULATING HORMONE 0.646 uIU/ML (0.358-3.740); TOTAL PROTEIN 6.8 GM/DL (6.4-8.2); TRIGLYCERIDES LEVEL 199 MG/DL (<150)
== END ==
LOC: M LAB 11:27
PROVIDERS: ATTEND Physician Assistant
DX: E03.9 Hypothyroidism, unspecified (principal); E78.00 Pure hypercholesterolemia, unspecified; R73.01 Impaired fasting glucose
CPT/HCPCS: 17000; 17003; 36415; 80053; 80061; 83036; 84439; 84443; 85025; G0463

== ENCOUNTER → 2020-12-21 | Outpatient (CLI) | payer MEDICARE ==
--- NOTE | 2020-12-21 17:18 | REP ---
INDICATION: MODERATE PERSISTENT ASTHMA, UNCOMPLICATED COMPARISON: 01/24/2020 TECHNIQUE: PA and lateral. FINDINGS: The mediastinum and cardiac silhouette are normal. Surgical clips again noted in the right breast. The lung herrera demonstrate chronic appearing linear markings in the left mid to lower lung zone consistent with the given history of chronic reactive airway disease. No focal consolidation or effusion. No pneumothorax. The skeletal structures again demonstrate thoracolumbar scoliosis and prior cervical fixation. IMPRESSION: No acute consolidation or effusion. <Electronically signed by Eloy Johnson > 12/21/20 [id number]
[2020-12-21 17:47] LABS: BASO # 0.1 10^3/uL (0.0-0.2); BASO % 1.2 % (0.0-1.0); EOS # 0.6 10^3/uL (0.0-0.5); EOS % 9.7 % (0.0-3.0); HEMATOCRIT 39.1 % (36.0-47.0); HEMOGLOBIN 12.4 g/dl (12.0-15.5); LYMPH # 1.8 10^3/uL (1.5-5.0); LYMPH % 30.1 % (24.0-44.0); MEAN CORPUSCULAR HEMOGLOBIN 28.2 pg (27.0-33.0); MEAN CORPUSCULAR HGB CONC 31.7 g/dl (32.0-36.5); MEAN CORPUSCULAR VOLUME 89.1 fl (80.0-96.0); MONO # 0.4 10^3/uL (0.0-0.8); MONO % 6.6 % (2.0-8.0); NEUTROPHILS # 3.1 10^3/uL (1.5-8.5); NEUTROPHILS % 52.2 % (36.0-66.0); PLATELET COUNT, AUTOMATED 231 10^3/uL (150-450); RED BLOOD COUNT 4.39 10^6/uL (4.00-5.40); WHITE BLOOD COUNT 5.9 10^3/uL (4.0-10.0)
== END ==
LOC: M RAD 16:21
PROVIDERS: ATTEND Physician Assistant
DX: J45.40 Moderate persistent asthma, uncomplicated (principal)

== ENCOUNTER → 2021-01-03 | Outpatient (CLI) | payer OTHER ==
[~2021-01-03] MED LIST changes: +BREO1INH3; +VALS80TA
--- NOTE | 2021-01-03 10:15 | RADONC ---
Radiation Oncology Hx/FUP Radiation Oncology Hx/FUP Date of Service: Jan 03, 2021 Pt Identifier Elif Bain is a 65 year old female seen for a followup visit today at the department of radiation oncology for a history of right breast DCIS ER/DE/HER2- Grade 3 s/p lumpectomy 12/01/18 and re-excision 12/15/18, the latter specimen had inconclusive evidence of an IDC. She completed adjuvant RT 40 Gy in 15 fractions WBI followed by 9 Gy in 6 fractions to the tumor bed on 08/25/19. Diagnosis/Treatment History Oncologic History As above. Survivorship Test Due Next Last result Notes TSH, T4* 6m post-tx, then q1y N/A Carotid US* q10 y post-tx N/A Smoking cessation Assess annually if applicable N/A Screening CT chest q1y if eligible per USPSTF N/A Mammograms Min q1y, if breast conservation Feb 2021 Negative 2020 CBC,CMP, Lipids q1y 2021 DEXA q2y if on AI [address] Del Valle Interval History Currently being worked up for left nipple bloody discharge, had a superficial biopsy in July 2020 which showed eczematoid changes. Will undergo a larger biopsy with Dr. Xiong in February after her mammogram and US are done. She has no concerns with the right breast at this time. No swelling or skin changes. She has ongoing hot flashes and joint pains from tamoxifen. Current Therapy Tamoxifen Stage Stage 0 pTisN0(sn)M0 ER/DE/HER2- Grade 3 Social History: Non-smoker Non-drinker Allergies / Meds Allergies: Coded Allergies: NSAIDS (Non-Steroidal Anti-Inflamma (Verified Allergy, Severe, anap hylaxis, 01/25/20) soy (Verified Allergy, Severe, anaphylaxis, 01/25/20) Home Meds Active Scripts Tamoxifen Citrate (Tamoxifen Citrate) 20 Mg Tablet, 20 MG PO DAILY for 90 Days, #90 TAB 3 Refills Prov:MILDRED DEL VALLE MD 09/08/20 Tamsulosin HCl (Flomax) 0.4 Mg Capsule, 1 CAP PO DAILY for 20 Days, #20 CAP Prov:WILLIAM MEZA MD 01/27/20 Acetaminophen (Acetaminophen) 325 Mg Tablet, 650 MG PO Q4H PRN for PAIN OR FEVER for 7 Days, #42 TAB Prov:ALEX AGRRIDO DO 01/15/20 Reported Medications Valsartan/Hydrochlorothiazide (Valsartan-Hctz 80-12.5 mg Tab) 1 Each Tablet 01/03/21 Fluticasone/Vilanterol (Breo Ellipta 200-25 Mcg INH) 1 Each Blst.w.dev 01/03/21 Salmeterol/Fluticasone (Advair 250-50 Diskus) 1 Each Blst.w.dev, 1 PUFF INH BID 01/06/20 Multivitamin (Multivitamin) 1 Each Tablet, 1 EACH PO DAILY, TAB 07/08/19 Fluticasone Propionate (Flonase Allergy Relief) 9.9 Ml [place].susp, 50 MCG NA DAILY, SPR 07/06/19 Fexofenadine/Pseudoephedrine (Jade-D 12 Hour Tablet) 1 Each Tab.er.12h, 1 TAB PO DAILY PRN for CONGESTION 07/06/19 Albuterol Sulfate (Proair Hfa) 8.5 Gm Hfa.aer.ad, 2 PUFF INH Q4-6HP PRN for wheezing 07/06/19 Levothyroxine Sodium (Synthroid) 88 Mcg Tablet, 88 MCG PO QAM 07/06/19 Montelukast Sodium (Singulair) 10 Mg Tablet, 10 MG PO DAILY 07/06/19 Review of Systems Review of Systems Constitutional: Denies: Fatigue, Weight Loss Eyes: Denies: Pain HEENT: Denies: Head Aches Skin: Reports: Rash Breast: Reports: Nipple Discharge Pulmonary: Denies: Dyspnea Cardiovascular: Denies: Chest Pain Gastrointestinal: Denies: Abdominal Pain Musculoskeletal: Reports: Joint pain Neurological: Denies: Weakness, Numbness Psych: Reports: Mood Normal Physical Examination Vital Signs Wt 163 lbs T 96.1 P 101 RR 16 BP 153/83 O2 96% Pain 0 Fatigue 0 General Exam: Alert, Cooperative, No Acute Distress Eye Exam: PERRLA, EOMI ENT EXAM: Atraumatic Neck Exam: Supple Breast Exam: Symmetric Bilaterally, Skin Changes (The left nipple has eczematoid rash. ); Negative: Lumps or Masses, Nipple Retraction, Nipple Discharge Abdomen Exam: Soft Extremity Exam: Negative: Edema Neuro Exam: Normal Gait, Normal Speech, Cranial Nerves 3-12 NL Psych Exam: Mental status NL Diagnostic and Laboratory Diagnostic Review Radiologic images, relevant labs and pathology reports were personally reviewed and discussed with Ms. Bain. Assessment and Plan Impression Assessment Ms. Bain is a 65 year old female with a history of right breast DCIS ER/DE/HER2- Grade 3 s/p lumpectomy 12/01/18 and re-excision 12/15/18, the latter specimen had inconclusive evidence of an IDC. She completed adjuvant RT 40 Gy in 15 fractions WBI followed by 9 Gy in 6 fractions to the tumor bed on 08/25/19. She is being worked up for left breast bloody discharge, pending mammograms and biopsy in February. Sounds like a papilloma by history. Nipple changes on the left are unremarkable and look atopic not neoplastic. The right breast is without lesions or post-RT sequelae. Her exam aside from the left nipple changes are CHAPIN. Will see her again in 1 year. Performance Status ECOG 0 Plan Follow up in 1 year Ms. Bain was encouraged to call with questions or concerns in the interim period. Billing Statement Total time of [21] minutes was spent preparing for the visit [1], obtaining HPI [4], examining the patient [4], reviewing diagnostic tests [2], discussing management options [5], coordinating care [1], and writing this note [4]. JAMIL FRANCIS MD Jan 03, 2021 10:15
== END ==
LOC: M ONCR 09:13 → EEVIPCON 09:30
PROVIDERS: ATTEND General Practice
DX: C50.111 Malignant neoplasm of central portion of right female breast (principal); N64.52 Nipple discharge; Z88.6 Allergy status to analgesic agent; Z79.810 Long term (current) use of selective estrogen receptor modulators (SERMs); Z79.899 Other long term (current) drug therapy; Z92.3 Personal history of irradiation

== ENCOUNTER → 2021-02-19 | Outpatient (CLI) | payer MEDICARE ==
[~2021-02-19] MED LIST changes: +INCR1INH
== END ==
LOC: M RAD 15:46
PROVIDERS: ATTEND Specialist
DX: N20.0 Calculus of kidney (principal); Z90.49 Acquired absence of other specified parts of digestive tract

== ENCOUNTER → 2021-02-19 | Outpatient (CLI) | payer MEDICARE | LOC: M WHC 14:01 | PROVIDERS: ATTEND Surgery | DX: D05.11 Intraductal carcinoma in situ of right breast (principal); N20.0 Calculus of kidney; Z90.49 Acquired absence of other specified parts of digestive tract | CPT/HCPCS: 74018; 77066; G0279 ==

== ENCOUNTER → 2021-02-22 | Outpatient (REF) | payer MEDICARE | LOC: M SFHCWAGY 17:15 | PROVIDERS: ATTEND Surgery | DX: L30.9 Dermatitis, unspecified (principal) ==

== ENCOUNTER → 2021-06-19 | Outpatient (CLI) | payer MEDICARE ==
[2021-06-19 15:43] LABS: BASO # 0.1 10^3/uL (0.0-0.2); BASO % 1.3 % (0.0-1.0); EOS # 0.7 10^3/uL (0.0-0.5); EOS % 9.3 % (0.0-3.0); HEMATOCRIT 40.7 % (36.0-47.0); HEMOGLOBIN 13.5 g/dl (12.0-15.5); LYMPH # 2.3 10^3/uL (1.5-5.0); MEAN CORPUSCULAR HEMOGLOBIN 29.3 pg (27.0-33.0); MEAN CORPUSCULAR HGB CONC 33.2 g/dl (32.0-36.5); MEAN CORPUSCULAR VOLUME 88.3 fl (80.0-96.0); MONO # 0.4 10^3/uL (0.0-0.8); MONO % 5.9 % (2.0-8.0); NEUTROPHILS # 3.6 10^3/uL (1.5-8.5); NEUTROPHILS % 50.1 % (36.0-66.0); PLATELET COUNT, AUTOMATED 264 10^3/uL (150-450); RED BLOOD COUNT 4.61 10^6/uL (4.00-5.40); WHITE BLOOD COUNT 7.1 10^3/uL (4.0-10.0)
[2021-06-19 17:37] LABS: ALBUMIN 4.1 GM/DL (3.2-5.2); ALT/SGPT 24 U/L (12-78); BILIRUBIN,TOTAL 0.3 MG/DL (0.2-1.0); BLOOD UREA NITROGEN 14 MG/DL (7-18); CALCIUM LEVEL 9.4 MG/DL (8.8-10.2); CARBON DIOXIDE LEVEL 29 MEQ/L (21-32); CHLORIDE LEVEL 106 MEQ/L (98-107); CHOLESTEROL LEVEL 230 MG/DL (<200); CHOLESTEROL RISK RATIO 4.107 (<5); CREATININE FOR GFR 0.81 MG/DL (0.55-1.30); FREE T4 0.94 NG/DL (0.76-1.46); GLOMERULAR FILTRATION RATE > 60.0 (>45); GLUCOSE, FASTING 112 MG/DL (70-100); HDL CHOLESTEROL 56 MG/DL (>40); LDL CHOLESTEROL 107 MG/DL (<100); NON-HDL-C 174 MG/DL; POTASSIUM SERUM 3.3 MEQ/L (3.5-5.1); SODIUM LEVEL 141 MEQ/L (136-145); TOTAL PROTEIN 7.3 GM/DL (6.4-8.2); TRIGLYCERIDES LEVEL 334 MG/DL (<150)
[2021-06-19 18:47] LABS: HEMOGLOBIN A1c 5.1 %
[2021-06-20 11:00] LABS: TOTAL 25(OH) VITAMIN D 13.3 NG/ML (30.0-100.0)
== END ==
LOC: M LAB 15:10
PROVIDERS: ATTEND Physician Assistant
DX: E03.9 Hypothyroidism, unspecified (principal); E78.00 Pure hypercholesterolemia, unspecified; R73.01 Impaired fasting glucose; Z79.899 Other long term (current) drug therapy

== ENCOUNTER → 2021-07-18 | Outpatient (CLI) | payer MEDICARE | LOC: M RAD 10:26 | PROVIDERS: ATTEND Physician Assistant | DX: M51.36 Other intervertebral disc degeneration, lumbar region (principal); M41.9 Scoliosis, unspecified; M25.78 Osteophyte, vertebrae ==